=== PATIENT | male | born 1955 | race Caucasian/White ===

== ENCOUNTER 2018-08-27 15:07 | Observation (INO) | payer OTHER ==
[~2018-08-27] VITALS: Ht 154.9 cm; Wt 71.6 kg
[2018-08-27 23:45] VITALS: BP 137/68; PULSE 58; RESP 18
[2018-08-28] VITALS: Ht 154.9 cm; Wt 71.6 kg
[2018-08-28 00:01] VITALS: BP 136/67; PULSE 58; RESP 18
[2018-08-28] MEDS ORDERED: FAMO20TA18 PO (00:09)
[2018-08-28] MEDS ORDERED: METO-448 PO (00:09)
[2018-08-28] MEDS ORDERED: ASPI-817 PO (00:09)
[2018-08-28] MEDS: SOD CHLORIDE 0.9% 1,000 ML IV SCH ×2 (01:56→13:19)
[2018-08-28] MEDS ORDERED: NACL 0.9% 3 ML SYG IV SCH (02:00)
[2018-08-28] MEDS ORDERED: METOCLOPRAMIDE 10 MG INJ IV PRN (02:00)
[2018-08-28] MEDS ORDERED: ACETAMINOPHEN 325 MG TAB PO PRN (02:00)
[2018-08-28] MEDS ORDERED: DOCUSATE SODIUM 100 MG CAP PO PRN (02:00)
[2018-08-28] MEDS ORDERED: ONDANSETRON 4 MG INJ IV PRN (02:00)
[2018-08-28] MEDS ORDERED: BISACODYL (EC) 5 MG TAB PO PRN (02:00)
--- NOTE | 2018-08-28 03:58 | HP ---
Date/Time of Note Date/Time of Note DATE: 08/28/18 TIME: 03:53 Assessment/Plan VTE Prophylaxis SCD applied (from Nsg): Yes Pharmacological prophylaxis: NA/contraindicated Pharm contraindication: low risk/ambulating Lines/Catheters IV Catheter Type (from Nrsg): Saline Lock Urinary Cath still in place: No Assessment/Plan Hospital Course This is a 59-year-old male being admitted to the [facility] floor for: #1 intractable nausea vomiting: Contrary to suspected gastroenteritis. Patient is afebrile. IV fluid hydration at the current time, trial of clear liquid diet in the a.m. Colace. #2 gastroenteritis: Possibly secondary to the hicama food he ate. IV fluids at the current time, trial of clear liquid diet in the a.m. #3 pulmonary nodules: We will check a CT of the chest in the a.m. patient denies smoking history but will need to confirm again. #4 hypertension: Resume metoprolol #5 hyperlipidemia: Check lipid panel #6 GERD: Resume H2 mya #7 DVT GI prophylaxis: SCDs, H2 mya Further treatment strategy will be implemented as per the clinical course. Result Diagram: 08/28/18 0205 Results 24hrs Laboratory Tests Test 08/28/18 02:05 White Blood Count 8.0 Red Blood Count 4.64 L Hemoglobin 14.9 Hematocrit 43.0 Mean Corpuscular Volume 92.7 Mean Corpuscular Hemoglobin 32.1 Mean Corpuscular Hemoglobin Concent 34.7 Red Cell Distribution Width 11.3 L Platelet Count 170 Mean Platelet Volume 9.9 Immature Granulocytes % 0.200 Neutrophils % 79.2 H Lymphocytes % 14.4 L Monocytes % 4.2 Eosinophils % 1.6 Basophils % 0.4 Nucleated Red Blood Cells % 0.0 Immature Granulocytes # 0.020 Neutrophils # 6.4 Lymphocytes # 1.2 Monocytes # 0.3 Eosinophils # 0.1 Basophils # 0.0 Nucleated Red Blood Cells # 0.0 Hemoglobin A1c 5.2 HPI/ROS Admit Date/Time Admit Date/Time August 27, 2018 at 23:05 Hx of Present Illness Chief complaint: Abdominal pain This is a 62-year-old male who was transferred from [facility] secondary to insurance purposes who presented to the emergency room with air complaining of abdominal pain. Patient reported that he developed a headache yesterday and then afterwards started having abdominal pain. His is with him at the bedside who does state that yesterday they ate a Prydeinig fruit called Rosie and shortly after that he started developing abdominal pain followed by nausea and vomiting. At the current time patient does report that he still has some lower abdominal discomfort. He however does feel hungry. Vitals on presentation at the transfer facility: Temperature 98.5 pulse 70 respirations 18 BP 130/85 pulse ox 98 Pertinent laboratory findings: White blood cell 6.4/hemoglobin 16.1/hematocrit 45.4/platelet count 173 BMP sodium 131 potassium 3.8 chloride 97 CO2 22 BUN 9 creatinine 0.6 LFTs within normal values lipase 27 urinalysis negative chest x-ray: Negative Ultrasound scrotum: Small amount of right 36-year-old fluid otherwise unremarkable ultrasound CT of the abdomen pelvis: Borderline small bowel dilatation with fecalization and wall prominence of multiple loops. Findings are nonspecific but may reflect chronic slow transit/enteritis. No evidence of small bowel obstruction: Appears normal. Multiple small pulmonary nodules are noted at the lung bases described. Nonemergent CT follow-up suggested Prominent coronary artery calcification. EKG: sinus jaspreet at a rate of 55 Allergies: NKDA Medications: See DANICA ROS Const: As per HPI Eyes : No pain discharge or redness or change in visual acuity ENT: No pain, sore throat, congestion, congestion, dysphagia or discharge Respiratory: No shortness of breath, cough, sputum, wheezing, or pleuritic pain Cardiovascular: No chest pain, palpitation, PND, or edema GI : As per HPI Genitourinary: No dysuria, hematuria, flank pain , discharge or CVA tenderness Musculoskeletal: No joint pain, back pain, neck pain, restricted range of motion in neck or joints Skin: No rash, bruising or hives Neuro: No headache, dizziness, syncope, seizure, focal weakness Endocrine: No polyuria, polydipsia, temperature intolerance Psych: No hallucination, depression, anxiety or suicidal ideation PMH/Family/Social Past Medical History Hypertension, hyperlipidemia, BPH Medications Current Medications Sodium Chloride 1,000 ml @ 80 mls/hr [id number] IV Last administered on 08/28/18at 01:56; Admin Dose 80 MLS/HR; Start 08/28/18 at 01:41 IV Flush (NS 3 ml) 3 ml PER PROTOCOL IV ; Start 08/28/18 at 02:00 Ondansetron HCl (Zofran Inj) 4 mg Q6H PRN IV NAUSEA/VOMITING; Start 08/28/18 at 02:00 Metoclopramide HCl (Reglan) 10 mg Q6H PRN IV NAUSEA/VOMITING; Start 08/28/18 at 02:00 Acetaminophen (Tylenol Tab) 650 mg Q6H PRN PO .PAIN 1-3 OR TEMP; Start 08/28/18 at 02:00 Docusate Sodium (Colace) 100 mg Q12H PRN PO .CONSTIPATION; Start 08/28/18 at 02:00 Bisacodyl (Dulcolax) 5 mg DAILY PRN PO .CONSTIPATION; Start 08/28/18 at 02:00 Coded Allergies: No Known Allergy (Unverified , 08/28/18) Past Surgical History Left wrist surgery Family History Significant Family History: no pertinent family hx Social History Alcohol Use: none Smoking Status: Never smoker Drug Use: none Exam/Review of Systems Vital Signs Vitals Vital Signs Date Temp Pulse Resp B/P (MAP) Pulse Ox O2 O2 Flow FiO2 Time Delivery Rate 08/28/18 97.7 58 18 136/67 53 Room Air 00:01 (90) Exam Exam General: patient is currently lying in bed he does not appear to be in acute distress. HEENT: Atraumatic, normocephalic. The pupils are equal, round and reactive. Extraocular motor are intact Neck: Supple with full range of motion. No rigidity or meningismus Chest: Nontender Lungs: Clear to auscultation bilaterally no crackles rales or wheezing Heart: Normal S1-S2, Regular rhythm and rate. No murmur, S3, or S4 Abdomen: Soft , mild tenderness palpation along the lower abdominal quadrants, no rebound or guarding, bowel sounds are present. , No masses or organomegaly. No costovertebral temporal angle mass Extremities: Normal to inspection, no edema no cyanosis Neurologic: Normal mental status, speech normal, cranial nerves II through XII are intact, motor and sensory are intact, NOÉ DAMON August 28, 2018 03:58
[2018-08-28 07:09] VITALS: BP 106/64; PULSE 58; RESP 14
[2018-08-28] MEDS ORDERED: METOPROLOL 25 MG TAB PO SCH (09:00)
[2018-08-28] MEDS ORDERED: DOCUSATE SODIUM 100 MG CAP PO SCH (09:00)
[2018-08-28] MEDS ORDERED: ASPIRIN (EC) 81 MG TAB PO SCH (09:00)
[2018-08-28] MEDS ORDERED: FAMOTIDINE 20 MG TAB PO SCH (09:00)
[2018-08-28 09:33] VITALS: BP 117/62; PULSE 63; RESP 18
[2018-08-28 14:31] VITALS: BP 101/63; PULSE 57; RESP 16
--- NOTE | 2018-08-28 15:07 | PDOCDIS ---
Discharge Instructions CONDITION [id number] Patient Condition: [id number] Stable HOME CARE INSTRUCTIONS: [id number] Diet Instructions: [id number] Low Fat /Cholesterol FOLLOW UP/APPOINTMENTS Follow-up Plan Follow-up with your primary care physician 1 week. OTHER ORDERS: Other Orders: 1. Resume home medications. 2. Take a low-cholesterol diet as tolerated. 3. Resume activities as tolerated 4. Follow-up with your primary care physician in 1 to 2 weeks. 5. Please go to the nearest emergency room if you have any significant abdominal pain, persistent nausea/vomiting, or any other unusual signs/symptoms. SHANE WEN NP August 28, 2018 15:07
--- NOTE | 2018-08-28 15:11 | DS ---
Date/Time of Note Date/Time of Note DATE: 08/28/18 TIME: 15:08 Discharge Summary Admission/Discharge Info Admit Date/Time August 27, 2018 at 23:05 Discharge Date/Time Discharge Diagnosis 1. Suspect acute viral gastroenteritis Vs food poisoning. 2. Hypertension. 3. Dyslipidemia. 4. GERD. Patient Condition: Stable Procedures Chest CT IMPRESSION: No acute air space infiltrates. No pulmonary nodules. Mild ectasia of the mid ascending thoracic aorta measuring 4.1 cm. Hx of Present Illness This is a 62-year-old male with past medical history of hypertension, dysli pidemia, and prostate hypertrophy. The patient went to the local emergency room because of abdominal pain with associated nausea and vomiting. The abdominal pain started after the patient ate some jicama. The patient had a CT scan of the abdomen and pelvis that was showing borderline small bowel dilatation with fecalization and wall prominence of multiple loops; nonspecific but may reflect chronic slow transit/enteritis. The patient continued to have significant nausea and vomiting that was uncontrolled in the emergency room. Therefore, the patient was transferred to [facility] for further evaluation because of insurance reasons. Hospital Course The patient was admitted to inpatient setting. The patient was initially kept n.p.o. The patient was later started on a clear liquid diet and the patient's diet was advanced as tolerated to a regular consistency diet without any significant gastrointestinal symptoms. The patient's underlying symptoms could have been precipitated by some kind of food poisoning after he ate the jicama. The patient's chronic problems include hypertension. The patient was maintained on antihypertensives. The patient also has a history of dyslipidemia. The patient's fasting lipid panel was satisfactory. The patient has history of GERD. The patient was maintained on histamine 2 receptor blockers. The patient's CT scan from the transferring facility was showing nonspecific pulmonary nodules. Therefore, the patient underwent a CT scan of the chest in the at [facility] that was negative for any airspace infiltrates or pulmonary nodules. The patient is able to tolerate a solid food without any significant gastrointestinal symptoms. The patient's symptoms are completely resolved. Therefore, the patient will be discharged home. Discharge Instructions 1. Resume home medications. 2. Take a low-cholesterol diet as tolerated. 3. Resume activities as tolerated 4. Follow-up with your primary care physician in 1 to 2 weeks. 5. Please go to the nearest emergency room if you have any significant abdominal pain, persistent nausea/vomiting, or any other unusual signs/symptoms. The patient verbalized understanding of his discharge instructions. The patient was seen in collaboration with Dr. Pal[facility] Reported Medications Aspirin* (Aspirin* EC) 81 Mg Tablet.dr, 81 MG PO DAILY, TAB 08/28/18 Famotidine* (Famotidine*) 20 Mg Tablet, 20 MG PO DAILY, #30 TAB 08/28/18 Metoprolol Tartrate* (Lopressor*) 25 Mg Tab, 25 MG PO BID, #60 TAB 08/28/18 Follow-up Plan Follow-up with your primary care physician 1 week. Primary Care Provider [facility] Time spent on discharge: > 30 minutes Pending Labs Laboratory Tests Test 08/28/18 02:05 White Blood Count 8.0 10^3/ul (4.8-10.8) Red Blood Count 4.64 10^6/ul (4.70-6.10) Hemoglobin 14.9 g/dl (14.0-18.0) Hematocrit 43.0 % (42.0-52.0) Mean Corpuscular Volume 92.7 fl (82.0-101.0) Mean Corpuscular Hemoglobin 32.1 pg (29.0-33.0) Mean Corpuscular Hemoglobin Concent 34.7 g/dl (32.0-37.0) Red Cell Distribution Width 11.3 % (11.5-14.5) Platelet Count 170 10^3/UL (140-415) Mean Platelet Volume 9.9 fl (7.4-10.4) Immature Granulocytes % 0.200 % (0.001-0.429) Neutrophils % 79.2 % (39.0-77.0) Lymphocytes % 14.4 % (15.0-51.0) Monocytes % 4.2 % (0.0-11.0) Eosinophils % 1.6 % (0.0-7.0) Basophils % 0.4 % (0.0-2.0) Nucleated Red Blood Cells % 0.0 /100WBC (0.0-0.0) Immature Granulocytes # 0.020 10^3/ul (0.0-0.031) Neutrophils # 6.4 10^3/ul (1.6-7.5) Lymphocytes # 1.2 10^3/ul (0.8-2.9) Monocytes # 0.3 10^3/ul (0.3-0.9) Eosinophils # 0.1 10^3/ul (0.0-0.5) Basophils # 0.0 10^3/ul (0.0-0.1) Nucleated Red Blood Cells # 0.0 10^3/ul (0.0-0.0) Sodium Level 142 mmol/L (135-144) Potassium Level 4.2 mmol/L (3.5-5.1) Chloride Level 109 mmol/L (97-110) Carbon Dioxide Level 26 mmol/L (21-31) Anion Gap 7 (5-13) Blood Urea Nitrogen 14 mg/dl (7-20) Creatinine 0.85 mg/dl (0.61-1.24) Est Glomerular Filtrat Rate mL/min > 60 mL/min (>60) Glucose Level 122 mg/dl (70-220) Hemoglobin A1c 5.2 % (0-5.9) Calcium Level 8.5 mg/dl (8.4-10.2) Magnesium Level 2.1 mg/dl (1.7-2.5) Total Bilirubin 0.7 mg/dl (0.2-1.3) Direct Bilirubin 0.00 mg/dl (0.00-0.20) Indirect Bilirubin 0.7 mg/dl (0-1.1) Aspartate Amino Transf (AST/SGOT) 30 IU/L (15-46) Alanine Aminotransferase (ALT/SGPT) 32 IU/L (13-69) Alkaline Phosphatase 73 IU/L (42-121) Total Protein 7.3 g/dl (6.1-8.1) Albumin 3.7 g/dl (3.3-4.9) Globulin 3.60 g/dl (1.3-3.2) Albumin/Globulin Ratio 1.02 Triglycerides Level 100 mg/dl (0-149) Cholesterol Level 142 mg/dl (100-200) LDL Cholesterol, Calculated 88 mg/dl HDL Cholesterol 34 mg/dl (30-78) Cholesterol/HDL Ratio 4.1 RATIO Thyroid Stimulating Hormone (TSH) 1.260 MIU/L (0.465-4.680) SHANE WEN NP August 28, 2018 15:11
== END 2018-08-28 17:45 | disposition home or self-care (01) ==
LOC: MS1 23:05 → INTOOBSV 23:05
PROVIDERS: ADMIT Internal Medicine; ATTEND Internal Medicine
DX: R11.2 Nausea with vomiting, unspecified (principal); I10 Essential (primary) hypertension; E78.5 Hyperlipidemia, unspecified; K21.9 Gastro-esophageal reflux disease without esophagitis
CPT/HCPCS: 71250; 80053; 80061; 82306; 83036; 83735; 84443; 85025; J2765; J7030; Z7500; Z7610; 99217; G0378